=== PATIENT | female | born 1960 | race Caucasian/White ===

== ENCOUNTER 2018-11-26 08:19 | Outpatient (CLI) | payer OTHER ==
--- NOTE | 2018-11-26 10:28 | XRAY Report ---
Reason: IMPINGEMENT SYNDROME OF LEFT SHOULDER,INJURY LT LO Procedure Date: 11/26/2018 Accession Number: [id number] / [id number] Procedure: XR - Shoulder 3 View LT CPT Code: FULL RESULT: EXAM: LEFT SHOULDER RADIOGRAPHY EXAM DATE: 11/26/2018 08:52 AM. CLINICAL HISTORY: Impingement syndrome of left shoulder, injury left. COMPARISON: None. TECHNIQUE: 3 views. FINDINGS: Bones: Normal. No fracture or bone lesion. Joints: The glenohumeral and acromioclavicular joints are normally located. Mild AC joint degenerative changes. Soft tissues: The visualized hemithorax is unremarkable. No soft tissue swelling. IMPRESSION: Mild AC joint degenerative changes. RADIA
--- NOTE | 2018-11-26 10:28 | XRAY Report ---
Reason: IMPINGEMENT SYNDROME OF LEFT SHOULDER,INJURY LT LO Procedure Date: 11/26/2018 Accession Number: [id number] / [id number] Procedure: XR - Knee 3 View LT CPT Code: FULL RESULT: EXAM: LEFT KNEE RADIOGRAPHY EXAM DATE: 11/26/2018 08:52 AM. CLINICAL HISTORY: Fall on 10/30/2018. COMPARISON: None. TECHNIQUE: 3 views. FINDINGS: Bones: Normal. No fractures or bone lesions. Joints: Mild joint space narrowing of the medial weightbearing compartment. No effusion. No subluxations. Soft Tissues: Normal. No soft tissue swelling. IMPRESSION: Mild degenerative changes. RADIA
== END 2018-11-26 08:20 | disposition home or self-care (01) ==
LOC: DI 08:19
PROVIDERS: ATTEND Internal Medicine
DX: M75.42 Impingement syndrome of left shoulder (principal); M19.012 Primary osteoarthritis, left shoulder; S89.92XA Unspecified injury of left lower leg, initial encounter; M17.12 Unilateral primary osteoarthritis, left knee

== ENCOUNTER 2019-07-18 11:29 | Outpatient (CLI) | payer OTHER ==
--- NOTE | 2019-07-19 13:50 | Ultrasound Report ---
Reason: ACUTE LOW BACK PAIN Procedure Date: 07/18/2019 Accession Number: [id number] / [id number] Procedure: US - Retroperitoneal CPT Code: Final Report FULL RESULT: EXAM: RENAL ULTRASOUND EXAM DATE: 07/18/2019 12:13 PM. CLINICAL HISTORY: ACUTE LOW BACK PAIN. COMPARISON: None. TECHNIQUE: Real-time scanning was performed with static images obtained. FINDINGS: Right Kidney: 11.1 x 6.2 x 3.8 cm. Normal echotexture with no stones, contour-deforming masses, or hydronephrosis. Left Kidney: 13 x 5.5 x 5.4 cm. Normal echotexture with no stones, contour-deforming masses, or hydronephrosis. 3.9 cm mid to lower pole simple cyst. Bladder: Bilateral jets seen. The prevoid bladder volume was 197 cc. The postvoid bladder volume was 32 cc. Other: None. IMPRESSION: 1. Normal cortical echogenicity of the kidneys without evidence for calculi or hydronephrosis. 2. Left mid to lower pole simple cyst. 3. Bilateral urinary bladder jets are seen. RADIA
== END 2019-07-18 11:30 | disposition home or self-care (01) ==
LOC: DI 11:29
PROVIDERS: ATTEND Registered Nurse
DX: N28.1 Cyst of kidney, acquired (principal); R10.9 Unspecified abdominal pain; M54.5 Low back pain
CPT/HCPCS: 76770

== ENCOUNTER 2021-12-28 08:18 | Outpatient (CLI) | payer OTHER ==
[2021-12-28 08:33] LABS: BASOPHILS # (AUTO) 0.1 10^3/uL (0.0-0.1); BASOPHILS % (AUTO) 0.9 %; EOSINOPHILS # (AUTO) 0.3 10^3/uL (0.0-0.7); EOSINOPHILS % (AUTO) 4.3 %; HCT - HEMATOCRIT 43.1 % (37.0-47.0); HGB - HEMOGLOBIN 13.7 g/dL (12.0-16.0); LYMPHOCYTES # (AUTO) 1.6 10^3/uL (1.5-3.5); LYMPHOCYTES % (AUTO) 24.8 %; MEAN CORPUSCULAR HEMOGLOBIN 28.8 pg (27.0-31.0); MEAN CORPUSCULAR HGB CONC 31.8 g/dL (32.0-36.0); MEAN CORPUSCULAR VOLUME 90.5 fL (81.0-99.0); MONOCYTES # (AUTO) 0.5 10^3/uL (0.0-1.0); MONOCYTES % (AUTO) 7.8 %; NEUTROPHILS # (AUTO) 4.1 10^3/uL (1.5-6.6); NEUTROPHILS % (AUTO) 61.9 %; PLT - PLATELET COUNT 238 10^3/uL (130-450); RED BLOOD COUNT 4.76 10^6/uL (4.20-5.40); RED CELL DISTRIBUTION WIDTH 13.2 % (12.0-15.0); WHITE BLOOD COUNT 6.6 x10^3/uL (4.8-10.8)
[2021-12-28 08:49] LABS: ALBUMIN 4.4 g/dL (3.2-5.5); ALBUMIN/GLOBULIN RATIO 1.2 (1.0-2.2); ALKALINE PHOSPHATASE 71 IU/L (42-121); ALT ALANINE AMINOTRANSFERASE 19 IU/L (10-60); AST ASPARTATE AMINOTRANSFERASE 18 IU/L (10-42); BILIRUBIN,TOTAL 0.6 mg/dL (0.2-1.0); BUN - BLOOD UREA NITROGEN 24 mg/dL (6-20); CALCIUM 9.6 mg/dL (8.5-10.3); CARBON DIOXIDE - CO2 29 mmol/L (21-32); CHLORIDE 103 mmol/L (101-111); CHOL/HDL RATIO 4.4 (<4.4); CHOLESTEROL 262 mg/dL; CREATININE 0.7 mg/dL (0.4-1.0); GFR - MDRD 85 (>89); GLUCOSE 111 mg/dL (70-100); HDL CHOLESTEROL 59 mg/dL; LDL CHOLESTEROL,CALCULATED 177 mg/dL; POTASSIUM 3.9 mmol/L (3.5-5.0); SODIUM 142 mmol/L (135-145); TRIGLYCERIDES 128 mg/dL; VLDL CHOLESTEROL 26 mg/dL
== END 2021-12-28 08:19 | disposition home or self-care (01) ==
LOC: LAB 08:18
PROVIDERS: ATTEND Physician Assistant
DX: R42 Dizziness and giddiness (principal); Z13.220 Encounter for screening for lipoid disorders
CPT/HCPCS: 36415; 80053; 80061; 83721; 84443; 85025

== ENCOUNTER 2023-05-18 12:45 | Outpatient (CLI) | payer OTHER ==
--- NOTE | 2023-05-18 18:33 | Ultrasound Report ---
PROCEDURE: Head or Neck Soft Tissue INDICATIONS: NECK MASS TECHNIQUE: Real-time scanning was performed of the thyroid gland, with image documentation. COMPARISON: None FINDINGS: Right: Thyroid lobe measures 5.9 x 2.2 x 1.9 cm, and is homogeneous in echotexture. Left: Thyroid lobe measures 5.4 x 2.6 x 2.1 cm, and is homogenous in echotexture. Isthmus: 6 mm thick. Nodule number: One Location: Right inferior Size: 1.1 x 1.2 x 0.9 cm. Composition: Solid. Echogenicity: Hypoechoic. Shape: wider than tall. Margins: Smooth (0 points). Echogenic foci: None (0 points). Total points: 4 ACR TI-RADS category: 4. Nodule number: Two Location: Left mid Size: 2.0 x 2.5 x 2.5 cm. Composition: Solid. Echogenicity: Hypoechoic. Shape: wider than tall. Margins: Smooth (0 points). Echogenic foci: None (0 points). Total points: 4 ACR TI-RADS category: 4. Nodule number: Three Location: Isthmus Size: 2.8 x 1.9 x 3.3 cm. Composition: Solid. Echogenicity: Hypoechoic. Shape: wider than tall. Margins: Smooth (0 points). Echogenic foci: None (0 points). Total points: 4 ACR TI-RADS category: 4. IMPRESSION: Lesions 2 and 3 are considered category 4. Secondary to size, FNA is recommended. Lesion 1 is considered category 1. Secondary to size, interval follow-up at 1, 2, 3 and 5 years is re commended. ACR TI-RADS definitions and recommendations: TI-RADS 1 (benign): 0 points. FNA not needed. TI-RADS 2 (not suspicious): 2 points. FNA not needed. TI-RADS 3 (mildly suspicious): 3 points. "FNA if 2.5 cm or larger, follow up if 1.5 cm or larger (at 1, 3, and 5 years). TI-RADS 4 (moderately suspicious): 4-6 points. "FNA if 1.5 cm or larger, follow up if 1 cm or larger (at 1, 2, 3, and 5 years). TI-RADS 5 (highly suspicious): 7 points or more. "FNA if 1 cm or larger, follow up if 0.5 cm or larger (every year for 5 years). Reviewed by: Vonda Schultz MD on 05/18/2023 6:31 PM PDT Approved by: Vonda Schultz MD on 05/18/2023 6:31 PM PDT Station ID: [id number]
== END 2023-05-18 12:46 | disposition home or self-care (01) ==
LOC: DI 12:45
PROVIDERS: ATTEND Physician Assistant
DX: E04.2 Nontoxic multinodular goiter (principal)

== ENCOUNTER 2023-06-06 12:02 | Outpatient (CLI) | payer OTHER ==
[~2023-06-06 12:02] MED LIST: LIDOCAINE-MPF 1% 5 ML VIAL ONE
[2023-06-06] MEDS ORDERED: LIDOCAINE-MPF 1% 5 ML VIAL TD ONE (14:13)
--- NOTE | 2023-06-06 15:59 | Ultrasound Report ---
PROCEDURE: FNA Bx w/US Gdn 1st Les INDICATIONS: THYROID NODULE TECHNIQUE: The indications, alternatives, benefits, risks, and complications of the procedure were explained to the patient. Written informed consent was obtained and placed in the chart. The area of interest wa s examined sonographically and a site was chosen for ultrasound guided percutaneous sampling. The sk in was prepared and draped in the usual fashion, and anesthetized with 1% lidocaine infiltrated from the skin down to the lesion. Multiple passes were then performed, with contents emptied into an appr [facility] pathology specimen container. A bandage was applied to the area of access at completion of t he study. COMPARISON: None. FINDINGS: Location(s) of lesion(s) sampled: Left mid thyroid [place]: 25 gauge hypodermic needles. Number of passes: 5 Medications: 1% lidocaine for local anaesthesia. Complications: None. IMPRESSION: Successful ultrasound-guided left mid thyroid fine needle aspiration, with cytology results pending. Reviewed by: Cintia Cox MD on 06/06/2023 3:57 PM PDT Approved by: Cintia Cox MD on 06/06/2023 3:57 PM PDT Station ID: [id number]
== END 2023-06-06 12:03 | disposition home or self-care (01) ==
LOC: DI 12:02
PROVIDERS: ATTEND Physician Assistant
DX: E04.2 Nontoxic multinodular goiter (principal)
CPT/HCPCS: 10005

== ENCOUNTER 2024-01-18 09:41 | Outpatient (CLI) | payer MEDICARE, OTHER ==
[2024-01-18] MEDS: ALBUTEROL 1 PUFF INH STA (12:58)
== END 2024-01-18 09:42 | disposition home or self-care (01) ==
LOC: RT 09:41
PROVIDERS: ATTEND Internal Medicine
DX: J45.909 Unspecified asthma, uncomplicated (principal); R05.3 Chronic cough; Z91.09 Other allergy status, other than to drugs and biological substances
CPT/HCPCS: 94060; 94729